=== PATIENT | female | born 1945 ===

== ENCOUNTER 2018-11-19 10:15 | Outpatient (CLI) | payer MEDICARE | END 2018-11-19 10:16 | disposition home or self-care (01) | LOC: RAD 10:15 | DX: C34.32 Malignant neoplasm of lower lobe, left bronchus or lung (principal) ==

== ENCOUNTER 2019-01-29 10:41 | Outpatient (CLI) | payer MEDICARE | END 2019-01-29 10:42 | disposition home or self-care (01) | LOC: RAD 10:41 ==